=== PATIENT | male | born 1955 | race Two or more races ===

== ENCOUNTER 2024-02-14 01:57 | Emergency (ER) | payer OTHER, SELFPAY ==
[2024-02-14 01:59] VITALS: BMI 29.5
[2024-02-14 02:19] VITALS: BP 184/103; PULSE 114; RESP 18; TEMP 36.6; O2SAT 98
[2024-02-14 02:44] VITALS: BP 125/83
[2024-02-14 02:54] LABS: Collection Type, Urine Clean Catch; Squamous Epithelial Cell,Urine 0 /hpf (0-5)
--- NOTE | 2024-02-14 02:59 | PC.NURSE ---
pt presented with a [facility] weathers cath in place. States it has not drained for the past 3 hrs. co sever pain to pelvic area. Old cath removed. New 16 fr cath inserted after cleaning tari area. Cath was inserted without difficulty. Pt immediatly drained opprox 600cc of pink cloudy urine. UA sent to lab. Leg bag placed. Pt had immeniate relief of pain.
[2024-02-14 03:27] LABS: Bacteria,Urine 1+; Bilirubin,Urine Negative (Negative); Blood,Urine 3+ (Negative); Clarity,Urine Turbid (Clear/Hazy); Glucose, Urine 4+ (Negative); Ketones,Urine Negative (Negative); Leukocyte Esterase,Urine Positive (Negative); Nitrite,Urine Negative (Negative); PH,Urine 5.5 (5.0-7.0); Protein,Urine 1+ (Neg - Trace); RBC,Urine 2212 /hpf (0-3); Specific Gravity,Urine 1.017 (1.001-1.035); Urobilinogen,Urine Negative mg/dL (0.0-1.0); WBC,Urine 253 /hpf (0-5)
[2024-02-14 03:28] LABS: Color,Urine Yellow (Lt Yel-Yel)
--- NOTE | 2024-02-14 03:33 | EDNOTE_ITS ---
ED Male Genitalurinary RME/HPI General Chief complaint: Urogenital-Male Stated complaint: AGUILERA NOT DRAINING; LOWER ABD PAIN Time Seen by Provider: 02/14/24 02:02 Arrival date/time: 02/14/24 01:57 RME / HPI RME / HPI Narrative: This section includes all my notes and documentations, including HPI, PE, and ED course. Alen Hugo MD HPI: 68-year-old male here to be evaluated with no urinary output since last night and worsening suprapubic pain. Indwelling catheter for the past several months. No fever or chills. No nausea or vomiting. No hematuria. No other complaints ROS: Gastrointestinal: negative except as documented in HPI. Genitourinary: negative except as documented in HPI. Musculoskeletal: negative except as documented in HPI. Skin: negative except as documented in HPI. Neurological: negative except as documented in HPI. Physical Exam: General: Alert and oriented. Appears very uncomfortable. Eyes: Conjunctivae and lids clear. Lungs: No respiratory distress. Abdomen: Soft with suprapubic tenderness. Normal bowel sounds. No distension. No rebound or guarding. Back: No CVA tenderness. . Skin: Warm and dry. Neuro: Alert and oriented X 3. Indwelling Aguilera catheter replaced, patient felt much better. UA showed leukocyte Estrace, RBC, WBC, and bacteria. At this point, diagnoses include urinary retention and UTI. Treatment here included Macrobid 100 mg. Based on my best medical judgment, made decision no further evaluation or treatment indicated at this time. Patient understands and agrees to the discharge instructions customized and printed, see below. Discharge instructions from Dr. Hugo: 1. Take Macrobid for UTI. 2. To flush the urinary tract, increase oral fluid and maintain clear urine. If dark or yellow, increase oral fluid. 3. Care of the Aguilera catheter as instructed in the attached handout. 4. See a private doctor on 02/17/2024 for for recheck. Ask to check the final urine culture results from today, to make sure Macrobid doesn't need to be changed due to resistance. 5. Seek immediate medical care with worsening, fever, or with any concerns. Alen Hugo MD Related Data Previous Rx's ?Medication ?Instructions ?Recorded aspirin 81 mg tablet,delayed 81 mg PO QDAY #30 tabs 08/27/23 release (Adult Low Dose Aspirin) carvedilol 3.125 mg tablet 3.125 mg PO BID #60 tabs 08/27/23 clopidogrel 75 mg tablet (Plavix) 75 mg PO QDAY #30 tabs 08/27/23 lisinopril 10 mg tablet 10 mg PO QDAY #30 tabs 08/27/23 metformin 1,000 mg tablet 1,000 mg PO BIDWMEAL 30 days #60 08/27/23 tabs tamsulosin 0.4 mg capsule 0.4 mg PO QDAY BPH 30 days #30 caps 11/30/23 insulin glargine 100 unit/mL (3 22 unit (0.22 mL) subcut QPM 02/04/24 mL) subcutaneous pen Diabetes Mellitus Type 2 insulin requiring #15 mL nitrofurantoin 100 mg PO BID 7 days #14 caps 02/14/24 monohydrate/macrocrystals 100 mg capsule (Macrobid) Allergies Allergy/AdvReac Type Severity Reaction Status Date / Time No Known Allergies Allergy Verified 02/14/24 02:01 Course Quality Measures none Orders Category Date Time Status Aguilera [Urinary Catheter] QS Care 02/14/24 03:14 Completed Aguilera to Leg Bag Routine Care 02/14/24 02:07 Ordered Glucose [Bedside Blood Glucose] NOW Care 02/14/24 03:32 Completed UA [Urinalysis] Stat Lab 02/14/24 02:45 Completed Nitrofurantoin Macro [Macrobid] Med 02/14/24 03:33 Discontinued 100 mg PO X1 ONE Vital Signs Vital signs: Vital Signs Temperature 97.8 F 02/14/24 02:19 Pulse Rate 114 H 02/14/24 02:19 Respiratory Rate 18 02/14/24 02:19 Blood Pressure 184/103 H 02/14/24 02:19 Pulse Oximetry (%) 98 02/14/24 02:19 Oxygen Delivery Method Room Air 02/14/24 02:19 Urogenital - Male Patient data External records reviewed:: [facility] previous records Clinical information provided by:: patient Social determinants that could affect healthcare access:: none Patient has the following chronic illnesses:: See charting How is presenting disease/condition affected by chronic disease/condition?: exacerbated by Evaluation data The following diagnostics were reviewed and interpreted by me:: lab results Lab and/or radiology exams considered but not ordered:: None Interpretation Summary: UTI Medications / Prescriptions Medications or Prescriptions considered but not ordered:: None Medication administrations:: Medication Administration History Discontinued Medications Nitrofurantoin Macrocrystals (Nitrofurantoin Macro 100 Mg Capsule) 100 mg PO X1 ONE Stop: 02/14/24 03:34 Last Admin: 02/14/24 03:41 Dose: 100 mg Documented By: RUSTY Baker Consultations Consultation(s) initiated? (list below): No Diagnosis Urogenital Male Differential Diagnosis: urinary tract infection and acute retention of urine Most likely diagnosis given after review of the tests above:: UTI Admission Indicated Admission indicated?: not indicated Explain why admission is indicated or not indicated:: No admission criteria Admission Request Was there a request for admission?: No Disposition Plan Disposition Plan: Discharge Discharge Attestation Discharge Attestation: The patient and all family members were given an opportunity to ask questions and understood the discharge instructions. Discharge instructions specifically effects, indications for sooner follow up or return to the emergency department, and the expected course of current diagnosis. Patient condition: Stable Discharge Plan Plan Patient Disposition: HOME (Self Care) Prescriptions/Referrals Prescriptions/Med Rec: New nitrofurantoin monohyd/m-cryst [Macrobid] 100 mg capsule 100 mg PO BID 7 Days Qty: 14 0RF Rx Instructions: must administer with a meal/food No Action lisinopril 10 mg tablet 10 mg PO QDAY Qty: 30 3RF carvedilol 3.125 mg tablet 3.125 mg PO BID Qty: 60 3RF Rx Instructions: must administer with a meal/food aspirin [Adult Low Dose Aspirin] 81 mg tablet,delayed release (DR/EC) 81 mg PO QDAY Qty: 30 3RF clopidogrel [Plavix] 75 mg tablet 75 mg PO QDAY Qty: 30 3RF metformin 1,000 mg tablet 1,000 mg PO BIDWMEAL 30 Days Qty: 60 3RF insulin glargine 100 unit/mL (3 mL) insulin pen 22 unit subcut QPM MDD 15 units Qty: 15 3RF tamsulosin 0.4 mg capsule 0.4 mg PO QDAY 30 Days Qty: 30 2RF Referrals: No Primary/Family,Physician [Primary Care Provider] - In 1 week Problem List Clinical Impression: Acute urinary retention, UTI (urinary tract infection) Patient/Caregiver Discharge Instructions Discharge Activity: activity as tolerated Education Materials: ED Aguilera Catheter, Care, ED Urinary Retention, Male, ED Bladder Infection, Male (Adult) Additional Instructions: Discharge instructions from Dr. Hugo: 1. Take Macrobid for UTI. 2. To flush the urinary tract, increase oral fluid and maintain clear urine. If dark or yellow, increase oral fluid. 3. Care of the Aguilera catheter as instructed in the attached handout. 4. See a private doctor on 02/17/2024 for for recheck. Ask to check the final urine culture results from today, to make sure Macrobid doesn't need to be changed due to resistance. 5. Seek immediate medical care with worsening, fever, or with any concerns. Print Language: Japanese Stand Alone Forms: Marisela Award Info., Patient Portal Info Letter Vaccines Vaccines Given During Stay: MMR
[2024-02-14 03:36] VITALS: BP 147/79; PULSE 101; RESP 16; TEMP 36.6; O2SAT 99
[2024-02-14] MEDS: NITROFURANTOIN MACRO 100 MG CAPSULE PO (03:41)
== END 2024-02-14 03:46 | disposition home or self-care (01) ==
PROVIDERS: Emergency Provider Emergency Medicine
DX: N39.0 Urinary tract infection, site not specified (principal)
CPT/HCPCS: 51702; 81001; 99283; A9270

== ENCOUNTER 2024-02-22 08:59 | Outpatient (AMB) | payer OTHER, SELFPAY ==
[2024-02-22 09:04] VITALS: BP 125/76; PULSE 69; RESP 17; TEMP 36.7; O2SAT 97; BMI 28.0
--- NOTE | 2024-02-22 09:04 | ACNOTE_ITS ---
Vital Signs 02/22/24 09:04 Height 1.75 m Height Method Stated Weight 85.956 kg Weight Measurement Method Standing Scale BMI 28.0 BP 125/76 Blood Pressure Source Automatic Cuff Blood Pressure Location Left Upper Arm Position Sitting Respiration 17 Pulse 69 Pulse Source Monitor Temp 98.0 F Temp Source Oral Pulse Oximetry (%) 97 Oxygen Delivery Method Room Air Allergies/Meds Allergies & Medications Allergies No Known Allergies Allergy (Verified 02/22/24 09:05) Medication Reconciliation aspirin 81 mg tablet,delayed release (Adult Low Dose Aspirin) 81 mg PO QDAY #30 tabs 02/22/24 [Rx] carvedilol 3.125 mg tablet 3.125 mg PO BID #60 tabs 02/22/24 [Rx] clopidogrel 75 mg tablet (Plavix) 75 mg PO QDAY #30 tabs 02/22/24 [Rx] insulin glargine 100 unit/mL (3 mL) subcutaneous pen 22 unit (0.22 mL) subcut QPM Diabetes Mellitus Type 2 insulin requiring #15 mL 02/22/24 [Rx] lisinopril 10 mg tablet 10 mg PO QDAY #30 tabs 02/22/24 [Rx] metformin 1,000 mg tablet 1,000 mg PO BIDWMEAL 30 days #60 tabs 02/22/24 [Rx] tamsulosin 0.4 mg capsule 0.4 mg PO QDAY BPH 30 days #30 caps 02/22/24 [Rx] MA Intake Visit Data Collection New Patient or Established: Established Patient (seen at [facility] within 3 years) Seen by Clinical Staff ONLY (RN/MA): No Reason for Visit:: F/U ED visit for UTI Pain Present Currently: No Pain scale:: 0 Pain Scale Used: Watson-Almbert/Numerical PCP or OBGYN visit in last 3 months: Yes Do You Feel Safe at Home: Yes Authorities Contacted: N/A Smoking Status Smoking Status: Never smoker Immunization / Flu Flu Vaccine in the Last 12 Months: No Flu Vaccine Exclusion Criteria: No Exclusion Criteria Past Medical History Past Medical History NEUROLOGIC: Negative Neurological Disorders or Seizures CARDIAC: Negative Cardiac Disorders, Congestive Heart Failure, Edema or Cellulitis RESPIRATORY: Negative Chronic Obstructive Pulmonary Disease (COPD) or Tuberculosis GASTROINTESTINAL: Negative Gastrointestinal Disorders or Hepatitis GENITOURINARY: Positive Genitourinary Disorders and Benign Prostatic Hyperplasia; Negative Renal Disease or Prostate Cancer MUSCULOSKELETAL: Positive Fractures ENT: Positive Cataracts ENDOCRINE: Positive Endocrine Disorders and Diabetes Mellitus Type 2; Negative Diabetes Mellitus Type 1 HEMATOLOGIC: Negative Blood Disorders OTHER HISTORY: Positive Hospitalization, Chicken Pox, Measles and Mumps; Negative Shingles, Falls, Blood Transfusions, Blood Transfusion Reaction, Anesthesia Reactions, Chemotherapy, Radiation Therapy, MRSA, Cancer or Prostate Cancer Family History FAMILY HISTORY: Positive Family Surgery; Negative Family Psychiatric Problems, Family Respiratory Disorders, Family Cardiac Disorders, Family Gastrointestinal Problems, Family Cancer or Family Anesthesia Reaction Surgical History SURGICAL: Negative Pacemaker Social History SMOKING STATUS: Smoking status: Never smoker ALCOHOL: Alcohol Intake: Current HOUSING: Housing: House LIVES WITH: Lives With: Family History of Present Illness HPI Narrative Mr. Mahamed Herrera is a 67-year-old Slovenian-speaking male with a past medical history of insulin-dependent diabetes mellitus type II, recurrent UTIs, and BPH with urinary retention with chronic weathers who presents to [facility] for follow up of an ED visit last week on 02/14/2024 for suprapubic pain. He is present with his son who interprets in Tongan and . In the ED he had a urinalysis completed which had shown 1+ protein, 4+ glucose, 3+ blood, positive leukocyte esterase, 2212 RBCs, 253 WBCs, 1+ bacterias. Patient was discharged with a 7-day course of nitrofurantoin 100 mg BID and instructed to follow up outpatient for culture results. There is no urine culture in the chart but a previous culture from 08/2022 showed E. coli sensitive to nitrofurantoin. Currently he is feeling much better and denies any suprapubic pain, dysuria, hematuria, fevers, chills, sweats, fatigue, or malaise. He is still finishing the antibiotics. Otherwise the son reports that patient had also been feeling unwell last week due to being unable to refill his insulin glargine 22 U daily. He states that there was delay with [facility], thus patient did not get his insulin for 1 week. Patient had 1 instance of fever which then self-resolved. Now that he has his insulin he is feeling better. Requests refills of all medications. Objective/Exam Narrative Physical exam: Physical Exam General: Awake and in no acute distress. Conversational and non-toxic appearing. HEENT: Normocephalic, atraumatic, mucous membranes moist. Heart: Regular rate and rhythm, no murmurs. Lungs: Clear to auscultation with no wheezing or crackles. Abdomen: Soft, nondistended, nontender, positive bowel sounds. ?No guarding or rebound tenderness. Neurologic: Alert and oriented x3, no gross neurological deficit, and patient able to move all 4 extremities. Extremities: No edema. Skin: No rash or ecchymoses. Assessment & Plan Diagnosis / Problem List (1) Diabetes mellitus type 2, insulin dependent: Status: Acute Assessment & Plan: Diagnosed around approx. 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 Has not seen home care scheduler in the past 11/04/2021 A1C >14% 07/18/2022 A1C 8.6% 07/15/2023 was 8.9% A1c on 11/13 was 10.9% Plan: Continue Metformin 1000mg PO BIDWM Continue wtih long acting Generic Glargine 22 SC QD Counseled on diabetic diet & continue checking blood glucose fasting morning levels and evening levels after dinner Will have patient get CMP and A1c prior to next 3 month f/u Next appt for [facility] 2023 to discuss lab results in person (2) Benign prostatic hyperplasia with incomplete bladder emptying: Status: Acute Assessment & Plan: Tolerating weathers catheter without complications Used to follow with urologist, Dr. Burleson for monthly folely catheter changes, but needs new provider 03/31/22 Prostate biopsy: Benign Prostate with inflammation, prostate volume 48.57cc 07/28/2022 TURBT: urothelial papilloma, chronic cystitis with eosinophils, negative for dysplasia or malignancy 11/13: changed weathers catheter in the ED Plan: Sent referral to Dr. Degroot, and if not accepting new patients, will refer to another urologist. Patient most robertson pending insurance authorization May need TURP procedure after 6 months s/p cardiac stents Last referral sent on 12/14/23 (3) CAD (coronary artery disease): Status: Acute Qualifiers: Coronary Disease-Associated Artery/Lesion type: [place] artery [place] vs. transplanted heart: cab[place] heart Associated angina: without angina Qualified Code(s): I25.10 - Atherosclerotic heart disease of [place] coronary artery without angina pectoris Assessment & Plan: 07/18/2022 Lipid panel: Total Cholesterol 228, Triglycerides 157, HDL 35, & LDL 164 ASCVD algorithm 24% risk of cardiovascular event in the next 10 years and high- intensity statin is recommended Pt follows with Dr. Stewart, fitting room attendant in [place], and was reportedly started on Asa, Plavix, and Atorvastatin after undergoing PCI where 2 stents were placed. Per cardiology, has cardiac clearance, but recommends to have TURP procedure after 6 months, where he can momentarily get of the Plavix and Aspirin for procedure. Plan: Continue with Atorvastatin 40mg HS, Asa 81mg QD, and Plavix 75mg QD Will have patient get a Lipid panel prior to next inperson clinic visit (4) Hyperlipidemia: Status: Acute Qualifiers: Hyperlipidemia type: unspecified Qualified Code(s): E78.5 - Hyperlipidemia, unspecified Assessment & Plan: 07/18/2022 Lipid panel: Total Cholesterol 228, Triglycerides 157, HDL 35, & LDL 164 ASCVD algorithm 24% risk of cardiovascular event in the next 10 years and high- intensity statin is recommended 11/13, Lipid panel significantly better, last LDL was 59. Almost at goal LDL target of under 55. Plan: Continue with Atorvastatin 40mg HS, Asa 81mg QD, and Plavix 75mg QD Will have patient get labs prior to next inperson clinic visit (5) Hypertension: Status: Acute Qualifiers: Hypertension type: primary hypertension Qualified Code(s): I10 - Essential (primary) hypertension Assessment & Plan: Pt's BP is well controlled and stable Plan: Continue with Carvedilol 3.125mg BID and Lisinopril 10mg QD Encouraged to maintain a healthy diet, less than 2g of sodium/day Orders: Orders Ambulatory Hemoglobin A1C Today E11.9 - Type 2 diabetes mellitus without complications, I10 - Essential (primary) hypertension, Z79.4 - intermediate card tender (current) use of insulin Basic Metabolic Panel Today E11.9 - Type 2 diabetes mellitus without complications, I10 - Essential (primary) hypertension, Z79.4 - intermediate card tender (current) use of insulin Additional Assessment Patient's care and plan discussed with my attending physician Dr. Nichelle Lagunas, PGY-2 Advanced Care Planning Advance care planning discussed with:: patient Office Procedures [facility] Level of Care Nursing/Assessment Patient Status: Established Patient Nursing Assessment/Reassessment: Medication Reconciliation, Update PMH in EMR and Vital Signs Coordination of Care: Complex Care and Chronic Disease 1-5, Education Complex Pt/Fam, Results/Orders obtained and Staff clarify orders Established Patient Charge Established Patient Point Assignment: 90 Established Patient Point Charge: EP Level 3 (80-115)
== END 2024-02-22 10:00 | disposition home or self-care (01) ==
LOC: HODAHC 08:59
PROVIDERS: PCP Student in an Organized Health Care Education/Training Program; Referring Provider Student in an Organized Health Care Education/Training Program; Supervising Provider Internal Medicine; Visit Provider Student in an Organized Health Care Education/Training Program
DX: E11.42 Type 2 diabetes mellitus with diabetic polyneuropathy (principal); Z79.4 Long term (current) use of insulin; Z79.84 Long term (current) use of oral hypoglycemic drugs; N40.1 Benign prostatic hyperplasia with lower urinary tract symptoms; R39.14 Feeling of incomplete bladder emptying; I25.10 Atherosclerotic heart disease of native coronary artery without angina pectoris; E78.5 Hyperlipidemia, unspecified; I10 Essential (primary) hypertension
CPT/HCPCS: 99213; G0463

== ENCOUNTER 2024-04-18 13:33 | Outpatient (AMB) | payer OTHER, SELFPAY ==
--- NOTE | 2024-04-18 13:50 | PD.RESCLINIC ---
Vital Signs 04/18/24 13:51 Height 1.75 m Height Method Stated Weight 87.997 kg Weight Measurement Method Standing Scale BMI 28.7 BP 116/75 Blood Pressure Source Automatic Cuff Blood Pressure Location Left Upper Arm Position Sitting Respiration 18 Pulse 83 Pulse Source Monitor Temp 97.3 F Temp Source Oral Pulse Oximetry (%) 98 Oxygen Delivery Method Room Air Allergies/Meds Allergies & Medications Allergies No Known Allergies Allergy (Verified 04/18/24 13:51) Medication Reconciliation aspirin 81 mg tablet,delayed release (Adult Low Dose Aspirin) 81 mg PO QDAY 3 months #90 tabs 04/18/24 [Rx] carvedilol 3.125 mg tablet 3.125 mg PO BID #180 tabs 04/18/24 [Rx] clopidogrel 75 mg tablet (Plavix) 75 mg PO QDAY 3 months #90 tabs 04/18/24 [Rx] insulin glargine 100 unit/mL (3 mL) subcutaneous pen 22 unit (0.22 mL) subcut QPM Diabetes Mellitus Type 2 insulin requiring #15 mL 04/18/24 [Rx] lisinopril 10 mg tablet 10 mg PO QDAY 3 months #90 tabs 04/18/24 [Rx] metformin 1,000 mg tablet 1,000 mg PO BIDWMEAL 3 months #180 tabs 04/18/24 [Rx] pen needle, diabetic, safety 32 gauge x 5/32 #100 ea 04/18/24 [Rx] tamsulosin 0.4 mg capsule 0.4 mg PO QDAY BPH 90 days #90 caps 04/18/24 [Rx] MA Intake Visit Data Collection New Patient or Established: Established Patient (seen at [facility] within 3 years) Seen by Clinical Staff ONLY (RN/MA): No Pain Present Currently: No Pain scale:: 0 Pain Scale Used: Watson-Lambert/Numerical Cat Tender Required: No PCP or OBGYN visit in last 3 months: Yes Do You Feel Safe at Home: Yes Authorities Contacted: N/A Smoking Status Smoking Status: Never smoker Immunization / Flu Flu Vaccine in the Last 12 Months: No Flu Vaccine Exclusion Criteria: No Exclusion Criteria Past Medical History Past Medical History NEUROLOGIC: Negative Neurological Disorders or Seizures CARDIAC: Negative Cardiac Disorders, Congestive Heart Failure, Edema or Cellulitis RESPIRATORY: Negative Chronic Obstructive Pulmonary Disease (COPD) or Tuberculosis GASTROINTESTINAL: Negative Gastrointestinal Disorders or Hepatitis GENITOURINARY: Positive Genitourinary Disorders and Benign Prostatic Hyperplasia; Negative Renal Disease or Prostate Cancer MUSCULOSKELETAL: Positive Fractures ENT: Positive Cataracts ENDOCRINE: Positive Endocrine Disorders and Diabetes Mellitus Type 2; Negative Diabetes Mellitus Type 1 HEMATOLOGIC: Negative Blood Disorders OTHER HISTORY: Positive Hospitalization, Chicken Pox, Measles and Mumps; Negative Shingles, Falls, Blood Transfusions, Blood Transfusion Reaction, Anesthesia Reactions, Chemotherapy, Radiation Therapy, MRSA, Cancer or Prostate Cancer Family History FAMILY HISTORY: Positive Family Surgery; Negative Family Psychiatric Problems, Family Respiratory Disorders, Family Cardiac Disorders, Family Gastrointestinal Problems, Family Cancer or Family Anesthesia Reaction Surgical History SURGICAL: Negative Pacemaker Social History SMOKING STATUS: Smoking status: Never smoker ALCOHOL: Alcohol Intake: Current HOUSING: Housing: House LIVES WITH: Lives With: Family Patient Portal Questionaires PHQ-9 PHQ-2 Over the last 2 weeks, how often have you been bothered by any of the following problems? 1. Little interest or pleasure in doing things: not at all PHQ-9 8. Moving or speaking so slowly that other people could have noticed? - Or the opposite - being so fidgety or restless that you have been moving around a lot more than usual: not at all Source: Developed by Drs. Vinnie Livingston, Yuni Nix, Erick Gray and colleagues, with an educational mare from [employer]. Social History Living Situation History Housing: House Tobacco History Smoking Status: Never smoker Alcohol History Alcohol Intake: Current Domestic Abuse History Do You Feel Safe at Home: Yes Review of Systems Report any current symptoms Only answer those that you have currently: Past Medical History Past Medical History Have you ever been diagnosed with any of the following: Neurological Problems Seizures: No Cardiology Problems Congestive Heart Failure: No Edema: No Cellulitis: No Respiratory Problems Chronic Obstructive Pulmonary Disease (COPD): No Tuberculosis: No Stomache/Intestinal Problems Hepatitis: No Genital/Urinary Problems Renal Disease: No Prostate Cancer: No Benign Prostatic Hyperplasia: Yes Musculoskeletal Problems Fractures: Yes Head,Eye,Nose,Throat Problems Cataracts: Yes Endocrine Problems Diabetes Mellitus Type 1: No Diabetes Mellitus Type 2: Yes Other Problems Hospitalization: Yes Shingles: No Falls: No Blood Transfusions: No Blood Transfusion Reaction: No Anesthesia Reactions: No Chemotherapy: No Radiation Therapy: No MRSA: No Chicken Pox: Yes Measles: Yes Mumps: Yes Cancer: No Surgical History Pacemaker: No History of Present Illness [facility] Urology referral - Zane (send referral) Shanks denied him Mr. Mahamed Herrera is a 68-year-old Tajik-speaking male with a past medical history of insulin-dependent diabetes mellitus type II, recurrent UTIs, and BPH with urinary retention with chronic weathers who presented to [facility] for three month follow up to review labs. Unfortunately, patient forgot to product picker lab slip, and will have patient complete labs for next visit. Patient requested a refill of all his medications for 3 months which was sent. Patient states his BS has been between 70-120 fasting. Encouraged patient to decrease insulin administration of 22u to 20u when BS is closer to 70 to avoid hypogylcemic state and/or to drink juice. Patient was also contacted by Dr. Degroot's office for an appointment for his BPH. Patient is requested to have his PCP send a referral to urology office. Otherwise, patient denies any complaints at this time. Patient's BP today is WNL. Patient was accompanied by his nephew, Ceasar who helped with translation. Review of Systems Review of Systems Systems Reviewed: All systems reviewed, normal except as documented Objective/Exam Narrative Physical exam: GEN: Well developed, well nourished man in NAD HEENT: NCAT, anicteric conjunctivae CV: RRR, normal S1 and S2, no M/R/G Lungs: CTAB ABD: BS+, non-tender, non-distended Skin: No rashes, lesions, or erythema. Ext: No edema, sensation intact in bilateral lower extremities with 2+ pedal pulses Neuro: Alert and oriented x3 Assessment & Plan Diagnosis / Problem List (1) Diabetes mellitus type 2, insulin dependent: Status: Acute Assessment & Plan: Diagnosed around approx. Complicated by peripheral neuropathy Follows french binding folder yearly Has not seen kardex clerk in the past 11/04/2021 A1C >14% 07/18/2022 A1C 8.6% 07/15/2023 was 8.9% A1c on 11/13 was 10.9% Plan: Continue Metformin 1000mg PO BIDWM Continue wtih long acting Generic Glargine 22 SC QD IF BG does drop to 70 and below, can decrease insulin administration from 22U to 20U and/or drink juice Counseled on diabetic diet & continue checking blood glucose fasting morning levels and evening levels after dinner Will have patient get CMP and A1c prior to next 3 month f/u Next appt for May 23, 2024 to discuss lab results in person (2) CAD (coronary artery disease): Status: Acute Qualifiers: Associated angina: without angina Coronary Disease-Associated Artery/Lesion type: [place] artery [place] vs. transplanted heart: [place] heart Qualified Code(s): I25.10 - Atherosclerotic heart disease of [place] coronary artery without angina pectoris Assessment & Plan: 07/18/2022 Lipid panel: Total Cholesterol 228, Triglycerides 157, HDL 35, & LDL 164 ASCVD algorithm 24% risk of cardiovascular event in the next 10 years and high-intensity statin is recommended Pt follows with Dr. Stewart, storm chaser in [place], and was reportedly started on Asa, Plavix, and Atorvastatin after undergoing PCI where 2 stents were placed. Per cardiology, has cardiac clearance, but recommends to have TURP procedure after 6 months, where he can momentarily get of the Plavix and Aspirin for procedure. Patient also will have a stress test in a couple months with his storm chaser. Plan: Continue with Atorvastatin 40mg HS, Asa 81mg QD, and Plavix 75mg QD Will have patient get a Lipid panel prior to next inperson clinic visit (3) Benign prostatic hyperplasia with incomplete bladder emptying: Status: Acute Assessment & Plan: Tolerating weathers catheter without complications Used to follow with urologist, Dr. Burleson for monthly folely catheter changes, but needs new provider 03/31/22 Prostate biopsy: Benign Prostate with inflammation, prostate volume 48.57cc 07/28/2022 TURBT: urothelial papilloma, chronic cystitis with eosinophils, negative for dysplasia or malignancy 11/13: changed weathers catheter in the ED Dr. Degroot's office requested official referral, will send on 04/18/24 Plan: Sent referral to Dr. Degroot Patient most robertson pending insurance authorization May need TURP procedure after 6 months s/p cardiac stents Will send another referral 04/18/24 (4) Hyperlipidemia: Status: Acute Qualifiers: Hyperlipidemia type: unspecified Qualified Code(s): E78.5 - Hyperlipidemia, unspecified Assessment & Plan: 07/18/2022 Lipid panel: Total Cholesterol 228, Triglycerides 157, HDL 35, & LDL 164 ASCVD algorithm 24% risk of cardiovascular event in the next 10 years and high-intensity statin is recommended 11/13, Lipid panel significantly better, last LDL was 59. Almost at goal LDL target of under 55. 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 Edgar. Lorri Lagunas, PGY-2 Internal Medicine Attending Note: Case discussed with and agree with note and management plan of Resident Physician as per Resident's Note above. Issues of concern for present visit are as follows: Follow-up 3-month visit. Patient did not get labs done prior to the appointment, he will complete prior to his next visit. Diabetes self-care reviewed including diet, exercise, footcare, eye care. Home glucose readings have been in acceptable range fasting. May need to titrate insulin down as he has had borderline hypoglycemia. Patient was able to see urology locally for his ongoing issues including BPH. Referral to be sent to the office. Blood pressure under good control. We will review labs when available. Further detail of ongoing issues as noted. Anoop Edgar MD Advanced Care Planning Advance care planning discussed with:: patient Physician Billing Established Patient Established Patient: E/M Level 3-CPT [address] [facility] Level of Care Nursing/Assessment Patient Status: Established Patient Nursing Assessment/Reassessment: Medication Reconciliation, Update PMH in EMR and Vital Signs Coordination of Care: Complex Care and Chronic Disease 1-5, Consent,records obtained, informed consent, Education Simp Pt/Fam and Staff clarify orders Established Patient Charge Established Patient Point Assignment: 85 Established Patient Point Charge: Level 3 (80-115)
[2024-04-18 13:51] VITALS: BP 116/75; PULSE 83; RESP 18; TEMP 36.3; O2SAT 98; BMI 28.7
== END 2024-04-18 14:27 | disposition home or self-care (01) ==
LOC: HODAHC 13:33
PROVIDERS: PCP Student in an Organized Health Care Education/Training Program; Referring Provider Student in an Organized Health Care Education/Training Program; Supervising Provider Internal Medicine; Visit Provider Student in an Organized Health Care Education/Training Program
DX: E11.42 Type 2 diabetes mellitus with diabetic polyneuropathy (principal); Z79.4 Long term (current) use of insulin; Z79.84 Long term (current) use of oral hypoglycemic drugs; I25.10 Atherosclerotic heart disease of native coronary artery without angina pectoris; N40.1 Benign prostatic hyperplasia with lower urinary tract symptoms; R39.14 Feeling of incomplete bladder emptying; E78.5 Hyperlipidemia, unspecified; I10 Essential (primary) hypertension
CPT/HCPCS: 99213; G0463

== ENCOUNTER 2024-06-03 08:42 | Emergency (ER) | payer OTHER, SELFPAY ==
[2024-06-03 08:51] VITALS: BP 131/73; PULSE 72; RESP 18; TEMP 36.6; O2SAT 99; BMI 29.1
--- NOTE | 2024-06-03 09:02 | EDNOTE_ITS ---
ED General RME/HPI General Chief complaint: Urogenital-Male Stated complaint: GONSALVES CATH CHANGE Time Seen by Provider: 06/03/24 09:01 Arrival date/time: 06/03/24 08:42 CC: Leaking Gonsalves catheter HPI this Gonsalves catheter is been in for 3 months. The patient has had an indwelling Gonsalves catheter for the last year and a half last changed out was in February patient denies fever chills chest pain shortness of breath or difficulty breathing. Related Data Previous Rx's ?Medication ?Instructions ?Recorded aspirin 81 mg tablet,delayed 81 mg PO QDAY 3 months #9 0 tabs 04/18/24 release (Adult Low Dose Aspirin) carvedilol 3.125 mg tablet 3.125 mg PO BID #180 tabs 0 04/18/24 clopidogrel 75 mg tablet (Plavix) 75 mg PO QDAY 3 nain hs #90 tabs 04/18/24 insulin glargine 100 unit/mL (3 22 unit (0.22 mL) subc ut QPM 04/18/24 mL) subcutaneous pen Diabetes Mellitus Type 2 ins ulin requiring #15 mL lisinopril 10 mg tablet 10 mg PO QDAY 3 months #90 t abs 04/18/24 metformin 1,000 mg tablet 1,000 mg PO BIDWMEAL 3 month s #180 04/18/24 tabs pen needle, diabetic, safety 32 #100 ea 04/18/24 gauge x 5/32 tamsulosin 0.4 mg capsule 0.4 mg PO QDAY BPH 90 days # 90 caps 04/18/24 Allergies Allergy/AdvReac Type Severity Reaction Status Date / Time No Known Allergies Allergy Verified 04/18/24 13:51 Review of Systems Review of Systems Narrative Review of Systems: GEN: No fever, no chills, no weight loss EYES: No discharge, no visual changes, no pain HEENT: No ear pain, no congestion, no sore throat PULM: No shortness of breath, no cough, no congestion CV: No chest pain, no dyspnea on exertion, no palpitations GI: No nausea, no vomiting, no diarrhea, no pain, no constipation : No frequency, no urgency, no dysuria MUSC/SKEL: No joint pain, no back pain SKIN: No rash PSYCH: No hallucinations, no depression HEME/LYMPH: No easy bleeding or bruising tendencies NEURO: No weakness, no headache Past Medical History Past Medical History NEUROLOGIC: Negative Neurological Disorders or Seizures CARDIAC: Negative Cardiac Disorders, Congestive Heart Failure, Edema or Cellulitis RESPIRATORY: Negative Chronic Obstructive Pulmonary Disease (COPD) or Tuberculosis GASTROINTESTINAL: Negative Gastrointestinal Disorders or Hepatitis GENITOURINARY: Positive Genitourinary Disorders and Benign Prostatic Hyperplasia; Negative Renal Disease or Prostate Cancer MUSCULOSKELETAL: Positive Musculoskeletal Disorders and Fractures ENT: Positive Cataracts ENDOCRINE: Positive Endocrine Disorders and Diabetes Mellitus Type 2; Negative Diabetes Mellitus Type 1 HEMATOLOGIC: Negative Blood Disorders OTHER HISTORY: Positive Hospitalization, Chicken Pox, Measles and Mumps; Negative Autoimmune Disease, Shingles, Falls, Blood Transfusions, Blood Transfusion Reaction, Anesthesia Reactions, Chemotherapy, Radiation Therapy, MRSA, Cancer or Prostate Cancer Family History FAMILY HISTORY: Positive Family Surgery; Negative Family Psychiatric Problems, Family Respiratory Disorders, Family Cardiac Disorders, Family Gastrointestinal Problems, Family Cancer or Family Anesthesia Reaction Surgical History SURGICAL: Negative Pacemaker Social History SMOKING STATUS: Never smoker ED Exam Narrative Physical exam: [General: Obese not in cot no acute distress Head normocephalic HEENT: Within acceptable limits Neck is supple nontender Chest equal chest rise nontender to palpation Respiratory: Clear to auscultation no wheezes crackles or rubs CV: Rate rhythm is regular no murmurs rubs or clicks Abdomen is soft nontender no masses positive bowel sounds all 4 quadrants : Gonsalves catheter emerging from the tip of the penis, meatus no surrounding erythema edema blood or exudate. Leaking clear yellow urine. Back: No CVA tenderness no spinous process tenderness from cervical spine thoracic and lumbar spine Skin: Intact no petechiae rash induration ulceration or crepitus Extremities: Moving all extremity against resistance cap refill less than 2 seconds neurosensory intact Neuro: Awake alert oriented x3 Glascow coma 15 no focal deficits] Course Course Course Narrative: Gonsalves catheter changed without complication patient tolerated procedure well. Quality Measures none Orders Category Date Time Status Miscellaneous Nursing Order NOW Care 06/03/24 09:01 Active Urinalysis, C/S if Indicated Stat Lab 06/03/24 09:01 Stop Req Vital Signs Vital signs: Vital Signs Temperature 97.8 F 06/03/24 08:51 Pulse Rate 72 06/03/24 08:51 Respiratory Rate 18 06/03/24 08:51 Blood Pressure 131/73 H 06/03/24 08:51 Pulse Oximetry (%) 99 06/03/24 08:51 Oxygen Delivery Method Room Air 06/03/24 08:51 [facility] Patient data External records reviewed:: [facility] previous records Clinical information provided by:: patient Social determinants that could affect healthcare access:: none Patient has the following chronic illnesses:: Indwelling Gonsalves catheter How is presenting disease/condition affected by chronic disease/condition?: exacerbated by Evaluation data The following diagnostics were reviewed and interpreted by me:: lab results Lab and/or radiology exams considered but not ordered:: None Interpretation Summary: Gonsalves catheter change Medications Medications considered but not ordered:: None Medication administrations:: None Consultations Consultation(s) initiated? (list below): No Diagnosis Differential Diagnosis ED Complaint MDM: Gonsalves catheter change Gonsalves catheter failure Gonsalves catheter obstruction Most likely diagnosis given after review of the tests above:: Gonsalves catheter change Admission Indicated Admission indicated?: not indicated Explain why admission is indicated or not indicated:: Stable for outpatient follow-up Admission Request Was there a request for admission?: No Disposition Plan Disposition Plan: Discharge Discharge Attestation Discharge Attestation: The patient and all family members were given an opportunity to ask questions and understood the discharge instructions. Discharge instructions specifically effects, indications for sooner follow up or return to the emergency department, and the expected course of current diagnosis. Patient condition: Stable Medical Decision Making Differential Diagnosis Differential Diagnosis: Gonsalves catheter change Gonsalves catheter failure Gonsalves catheter obstruction Discharge Plan Plan Patient Disposition: HOME (Self Care) Patient condition on transfer: Stable Prescriptions/Referrals Prescriptions/Med Rec: No Action (DME) pen needle, diabetic, safety 32 gauge x 5/32 needle See Rx Instructions .Route Qty: 100 0RF Rx Instructions: As directed carvedilol 3.125 mg tablet 3.125 mg PO BID Qty: 180 2RF Rx Instructions: must administer with a meal/food insulin glargine 100 unit/mL (3 mL) insulin pen 22 unit subcut QPM MDD 15 units Qty: 15 3RF tamsulosin 0.4 mg capsule 0.4 mg PO QDAY 90 Days Qty: 90 2RF aspirin [Adult Low Dose Aspirin] 81 mg tablet,delayed release (DR/EC) 81 mg PO QDAY 90 Days Qty: 90 3RF clopidogrel [Plavix] 75 mg tablet 75 mg PO QDAY 90 Days Qty: 90 3RF lisinopril 10 mg tablet 10 mg PO QDAY 90 Days Qty: 90 3RF metformin 1,000 mg tablet 1,000 mg PO BIDWMEAL 90 Days Qty: 180 3RF Referrals: No Primary/Family,Physician [Primary Care Provider] - In 1 week Problem List Clinical Impression: Urinary catheter (Gonsalves) change required Patient/Caregiver Discharge Instructions Education Materials: Emptying and Cleaning Your ... Print Language: Taiwanese Stand Alone Forms: Marisela Award Info., Work/School Release, Patient Portal Info Letter PA/CRIME SPECIALIST Supervising Physician PA/CRIME SPECIALIST Supervising Physician: Melvin York ENP
== END 2024-06-03 09:49 | disposition home or self-care (01) ==
PROVIDERS: Emergency Provider Emergency Medicine
DX: T83.031A Leakage of indwelling urethral catheter, initial encounter (principal); Y84.6 Urinary catheterization as the cause of abnormal reaction of the patient, or of later complication, without mention of misadventure at the time of the procedure
CPT/HCPCS: 51702; 81001; 99283

== ENCOUNTER 2024-08-05 08:35 | Emergency (ER) | payer OTHER, SELFPAY ==
[2024-08-05 08:42] VITALS: BP 156/91; PULSE 69; RESP 18; TEMP 36.4; O2SAT 98; BMI 28.3
--- NOTE | 2024-08-05 09:05 | EDNOTE_ITS ---
<Statement entered by Candi Chaudhari MD - 08/16/24 06:29> As co-signing physician, I was present and available for consult prn. I concur with the plan and care as documented by the midlevel provider. ED Male Genitalurinary RME/HPI General Chief complaint: Urogenital-Male Stated complaint: WANTS F/C CHANGED Time Seen by Provider: 08/05/24 08:38 Arrival date/time: 08/05/24 08:35 68-year-old male presents to the Emergency Department today requesting to have his Aguilera catheter placed patient's had a catheter in place for months patient is awaiting follow-up with specialist Limitations: no limitations Related Data Previous Rx's ?Medication ?Instructions ?Recorded aspirin 81 mg tablet,delayed 81 mg PO QDAY 3 months #9 0 tabs 04/18/24 release (Adult Low Dose Aspirin) carvedilol 3.125 mg tablet 3.125 mg PO BID #180 tabs 0 04/18/24 clopidogrel 75 mg tablet (Plavix) 75 mg PO QDAY 3 nain hs #90 tabs 04/18/24 insulin glargine 100 unit/mL (3 22 unit (0.22 mL) subc ut QPM 04/18/24 mL) subcutaneous pen Diabetes Mellitus Type 2 ins ulin requiring #15 mL lisinopril 10 mg tablet 10 mg PO QDAY 3 months #90 t abs 04/18/24 metformin 1,000 mg tablet 1,000 mg PO BIDWMEAL 3 month s #180 04/18/24 tabs pen needle, diabetic, safety 32 #100 ea 04/18/24 gauge x 5/32 tamsulosin 0.4 mg capsule 0.4 mg PO QDAY BPH 90 days # 90 caps 04/18/24 Allergies Allergy/AdvReac Type Severity Reaction Status Date / Time No Known Allergies Allergy Verified 08/05/24 08:36 Review of Systems Review of Systems Systems Reviewed: All systems reviewed, normal except as documented Constitutional Constitutional: Reports system reviewed and no additional complaints, except as documented, Denies fever(s) and Denies headache(s) Eyes Eyes: Reports system reviewed and no additional complaints, except as documented and Denies blurry vision ENT Ears, Nose, Mouth, and Throat: Reports system reviewed and no additional co mplaints, except as documented, Denies headache(s), Denies nasal congestion and Denies nasal discharge Cardiovascular Cardiovascular: Reports system reviewed and no additional complaints, except as documented, Denies chest pain and Denies dyspnea Respiratory Respiratory: Reports system reviewed and no additional complaints, except as documented, Denies chest congestion, Denies cough and Denies dyspnea Gastrointestinal Gastrointestinal: Reports system reviewed and no additional complaints, except as documented and Denies abdominal pain Genitourinary Genitourinary: Reports system reviewed and no additional complaints, except as documented and Reports other (Aguilera catheter in place) Integumentary/Breasts Skin/Breast: Reports system reviewed and no additional complaints, except as documented and Denies rash Neurologic Neurologic: Reports system reviewed and no additional complaints, except as docu mented, Reports as per HPI and Denies headache(s) Past Medical History Past Medical History NEUROLOGIC: Negative Neurological Disorders or Seizures CARDIAC: Negative Cardiac Disorders, Congestive Heart Failure, Edema or Cellulitis RESPIRATORY: Negative Chronic Obstructive Pulmonary Disease (COPD) or Tuberculosis GASTROINTESTINAL: Negative Gastrointestinal Disorders or Hepatitis GENITOURINARY: Positive Genitourinary Disorders and Benign Prostatic Hyperplasia; Negative Renal Disease or Prostate Cancer MUSCULOSKELETAL: Positive Musculoskeletal Disorders and Fractures ENT: Positive Cataracts ENDOCRINE: Positive Endocrine Disorders and Diabetes Mellitus Type 2; Negative Diabetes Mellitus Type 1 HEMATOLOGIC: Negative Blood Disorders OTHER HISTORY: Positive Hospitalization, Chicken Pox, Measles and Mumps; Negative Autoimmune Disease, Shingles, Falls, Blood Transfusions, Blood Transfusion Reaction, Anesthesia Reactions, Chemotherapy, Radiation Therapy, MRSA, Cancer or Prostate Cancer Family History FAMILY HISTORY: Positive Family Surgery; Negative Family Psychiatric Problems, Family Respiratory Disorders, Family Cardiac Disorders, Family Gastrointestinal Problems, Family Cancer or Family Anesthesia Reaction Surgical History SURGICAL: Negative Pacemaker Social History SMOKING STATUS: Former smoker ED Exam General Limitations: Present no limitations General appearance: Present alert and in no apparent distress Head Head exam: Present atraumatic Eye Eye exam: Present normal appearance, PERRL and EOMI ENT ENT exam: Present normal exam, normal oropharynx and mucous membranes moist Neck Neck exam: Present normal inspection, full ROM and trachea midline Chest Chest inspection: Present normal inspection and symmetric chest wall rise Respiratory Respiratory exam: Present normal lung sounds bilaterally Cardiovascular Cardiovascular exam: Present regular rate, normal rhythm and normal heart sounds Abdominal Exam Abdominal exam: Present soft and normal bowel sounds; Absent distention, tenderness, guarding, rebound or rigidity Extremities Exam Extremities exam: Present normal inspection and full ROM Back Exam Back exam: Present normal inspection and full ROM Neurological Exam Neurological exam: Present alert, oriented X3, CN II-XII intact, normal gait and reflexes normal; Absent motor sensory deficit Psychiatric Psychiatric exam: Present normal affect and normal mood Skin Skin exam: Present warm, dry, intact and normal color; Absent rash Course Quality Measures none Orders Category Date Time Status Aguilera [Urinary Catheter, Remove] ONCE Care 08/05/24 08:38 Completed Aguilera [Urinary Catheter] NOW Care 08/05/24 08:38 Completed Aguilera to Leg Bag Routine Care 08/05/24 08:38 Ordered Vital Signs Vital signs: Vital Signs Temperature 97.6 F 08/05/24 08:42 Pulse Rate 69 08/05/24 08:42 Respiratory Rate 18 08/05/24 08:42 Blood Pressure 156/91 H 08/05/24 08:42 Pulse Oximetry (%) 98 08/05/24 08:42 Oxygen Delivery Method Room Air 08/05/24 08:42 02 sat 98% r/a wnl Urogenital - Male MDM Narrative MDM Narrative:: 68-year-old male presents to the Emergency Department today requesting to have his Aguilera catheter placed patient's had a catheter in place for months patient is awaiting follow-up with specialist On exam patient well-appearing patient does not appear ill or toxic in no acute distress Aguilera catheter is replaced without difficulty draining well Patient discharged home in no distress to follow-up with primary care doctor in the next 24 to 48 hours and for any worsening symptoms to return to the ER immediately Patient data External records reviewed:: [facility] previous records Clinical information provided by:: patient Social determinants that could affect healthcare access:: none Patient has the following chronic illnesses:: None How is presenting disease/condition affected by chronic disease/condition?: no chronic disease Evaluation data The following diagnostics were reviewed and interpreted by me:: other (specify) (N/A) Lab and/or radiology exams considered but not ordered:: N/A Interpretation Summary: N/A Medications / Prescriptions Medications or Prescriptions considered but not ordered:: No meds Medication administrations:: No meds Consultations Consultation(s) initiated? (list below): No Diagnosis Urogenital Male Differential Diagnosis: urinary tract infection and acute retention of urine Most likely diagnosis given after review of the tests above:: Aguilera catheter placement Admission Indicated Admission indicated?: not indicated Admission Request Was there a request for admission?: No Disposition Plan Disposition Plan: Discharge Discharge Attestation Discharge Attestation: The patient and all family members were given an opportunity to ask questions and understood the discharge instructions. Discharge instructions specifically effects, indications for sooner follow up or return to the emergency department, and the expected course of current diagnosis. Patient condition: Stable Discharge Plan Plan Patient Disposition: HOME (Self Care) Discharge Disposition comment: Stable Prescriptions/Referrals Prescriptions/Med Rec: No Action (DME) pen needle, diabetic, safety 32 gauge x 5/32 needle See Rx Instructions .Route Qty: 100 0RF Rx Instructions: As directed carvedilol 3.125 mg tablet 3.125 mg PO BID Qty: 180 2RF Rx Instructions: must administer with a meal/food insulin glargine 100 unit/mL (3 mL) insulin pen 22 unit subcut QPM MDD 15 units Qty: 15 3RF tamsulosin 0.4 mg capsule 0.4 mg PO QDAY 90 Days Qty: 90 2RF aspirin [Adult Low Dose Aspirin] 81 mg tablet,delayed release (DR/EC) 81 mg PO QDAY 90 Days Qty: 90 3RF clopidogrel [Plavix] 75 mg tablet 75 mg PO QDAY 90 Days Qty: 90 3RF lisinopril 10 mg tablet 10 mg PO QDAY 90 Days Qty: 90 3RF metformin 1,000 mg tablet 1,000 mg PO BIDWMEAL 90 Days Qty: 180 3RF Referrals: No Primary/Family,Physician [Primary Care Provider] - In 1 week Problem List Clinical Impression: Encounter for Aguilera catheter replacement Patient/Caregiver Discharge Instructions Additional Instructions: Please request that your PCP refer you to Dr. arias for worsening symptoms or concerns return immediately Print Language: Citizen Of The [place] Stand Alone Forms: Marisela Award Info., Patient Portal Info Letter PA/EVP MANAGING DIRECTOR Supervising Physician PA/TRIP Supervising Physician: Dr. chaudhari
== END 2024-08-05 09:59 | disposition home or self-care (01) ==
PROVIDERS: Emergency Provider Emergency Medicine
DX: Z46.6 Encounter for fitting and adjustment of urinary device (principal)
CPT/HCPCS: 51702; 99283

== ENCOUNTER 2024-09-16 08:39 | Emergency (ER) | payer OTHER, SELFPAY ==
[2024-09-16 09:08] VITALS: BP 119/74; PULSE 69; RESP 16; TEMP 36.9; O2SAT 99; BMI 29.2
--- NOTE | 2024-09-16 09:34 | EDNOTE_ITS ---
ED Male Genitalurinary RME/HPI General Chief complaint: Urogenital-Male Stated complaint: needs catheter replaced Time Seen by Provider: 09/16/24 09:10 Source: patient Arrival date/time: 09/16/24 08:39 68-year-old male with a history of type 2 diabetes, hypertension, BPH presents to the emergency room with a chief complaint of needing his catheter replaced. Patient states he has no urinary complaints but states his catheter leg bag has been leaking. Mode of arrival: ambulatory Limitations: no limitations Related Data Previous Rx's ?Medication ?Instructions ?Recorded aspirin 81 mg tablet,delayed 81 mg PO QDAY 3 months #9 0 tabs 04/18/24 release (Adult Low Dose Aspirin) carvedilol 3.125 mg tablet 3.125 mg PO BID #180 tabs 0 04/18/24 clopidogrel 75 mg tablet (Plavix) 75 mg PO QDAY 3 nain hs #90 tabs 04/18/24 insulin glargine 100 unit/mL (3 22 unit (0.22 mL) subc ut QPM 04/18/24 mL) subcutaneous pen Diabetes Mellitus Type 2 ins ulin requiring #15 mL lisinopril 10 mg tablet 10 mg PO QDAY 3 months #90 t abs 04/18/24 metformin 1,000 mg tablet 1,000 mg PO BIDWMEAL 3 month s #180 04/18/24 tabs pen needle, diabetic, safety 32 #100 ea 04/18/24 gauge x 5/32 tamsulosin 0.4 mg capsule 0.4 mg PO QDAY BPH 90 days # 90 caps 04/18/24 Allergies Allergy/AdvReac Type Severity Reaction Status Date / Time No Known Allergies Allergy Verified 09/16/24 08:42 Review of Systems Review of Systems Systems Reviewed: All systems reviewed, normal except as documented Constitutional Constitutional: Reports system reviewed and no additional complaints, except as documented, Denies fatigue, Denies fever(s), Denies headache(s) and Denies weakness Eyes Eyes: Reports system reviewed and no additional complaints, except as docum ented, Denies blurry vision and Denies change in vision ENT Ears, Nose, Mouth, and Throat: Reports system reviewed and no additional complaints, except as documented, Denies otalgia, Denies headache(s), Denies nasal congestion, Denies throat swelling and Denies vertigo Cardiovascular Cardiovascular: Reports system reviewed and no additional complaints, except as documented, Denies chest pain, Denies dyspnea and Denies dyspnea on exertion Respiratory Respiratory: Reports system reviewed and no additional complaints, except as documented, Denies chest congestion, Denies cough, Denies dyspnea, Denies dyspnea on exertion and Denies wheezing Gastrointestinal Gastrointestinal: Reports system reviewed and no additional complaints, except as documented, Denies abdominal pain, Denies cramping, Denies nausea and Denies vomiting Genitourinary Genitourinary: Reports system reviewed and no additional complaints, except as documented, Denies dysuria and Denies hematuria Musculoskeletal Musculoskeletal: Reports system reviewed and no additional complaints, except as documented and Denies back pain Integumentary/Breasts Skin/Breast: Reports system reviewed and no additional complaints, except as documented and Denies wounds Neurologic Neurologic: Reports system reviewed and no additional complaints, except as documented, Denies confusion, Denies headache(s), Denies lack of coordination, Denies vertigo and Denies weakness Psychiatric Psychiatric: Reports system reviewed and no additional complaints, except as documented, Denies anxiety, Denies confusion, Denies depression, Denies paranoia, Denies suicidal ideation and Denies tactile hallucinations Endocrine Endocrine: Reports system reviewed and no additional complaints, except as documented and Denies fatigue Hematologic/Lymphatic Hematologic/Lymphatic: Reports system reviewed and no additional complaints, except as documented and Denies lymphadenopathy Allergic/Immunologic Allergic/Immunologic: Reports system reviewed and no additional complaints, except as documented, Denies throat swelling, Denies urticaria and Denies wheezing Past Medical History Past Medical History NEUROLOGIC: Negative Neurological Disorders or Seizures CARDIAC: Negative Cardiac Disorders, Congestive Heart Failure, Edema or Cellulitis RESPIRATORY: Negative Chronic Obstructive Pulmonary Disease (COPD) or Tuberculo sis GASTROINTESTINAL: Negative Gastrointestinal Disorders or Hepatitis GENITOURINARY: Positive Genitourinary Disorders and Benign Prostatic Hyperplasia; Negative Renal Disease or Prostate Cancer MUSCULOSKELETAL: Positive Musculoskeletal Disorders and Fractures ENT: Positive Cataracts ENDOCRINE: Positive Endocrine Disorders and Diabetes Mellitus Type 2; Negative Diabetes Mellitus Type 1 HEMATOLOGIC: Negative Blood Disorders OTHER HISTORY: Positive Hospitalization, Chicken Pox, Measles and Mumps; Negative Autoimmune Disease, Shingles, Falls, Blood Transfusions, Blood Transfusion Reaction, Anesthesia Reactions, Chemotherapy, Radiation Therapy, MRSA, Cancer or Prostate Cancer Family History FAMILY HISTORY: Positive Family Surgery; Negative Family Psychiatric Problems, Family Respiratory Disorders, Family Cardiac Disorders, Family Gastrointestinal Problems, Family Cancer or Family Anesthesia Reaction Surgical History SURGICAL: Negative Pacemaker Social History SMOKING STATUS: Former smoker ED Exam General Limitations: Present no limitations General appearance: Present alert and in no apparent distress Head Head exam: Present atraumatic Eye Eye exam: Present normal appearance, PERRL and EOMI ENT ENT exam: Present normal exam, normal oropharynx and mucous membranes moist Neck Neck exam: Present normal inspection, full ROM and trachea midline Chest Chest inspection: Present normal inspection and symmetric chest wall rise Respiratory Respiratory exam: Present normal lung sounds bilaterally Cardiovascular Cardiovascular exam: Present regular rate, normal rhythm and normal heart sounds Abdominal Exam Abdominal exam: Present soft and normal bowel sounds Extremities Exam Extremities exam: Present normal inspection and full ROM Back Exam Back exam: Present normal inspection and full ROM Neurological Exam Neurological exam: Present alert, oriented X3 and CN II-XII intact Psychiatric Psychiatric exam: Present normal affect and normal mood Skin Skin exam: Present warm, dry, intact and normal color Course Quality Measures none Orders Category Date Time Status Aguilera [Urinary Catheter, Remove] ONCE Care 09/16/24 09:32 Active Aguilera [Urinary Catheter] QS Care 09/16/24 09:32 Active Aguilera to Leg Bag Routine Care 09/16/24 09:32 Ordered Vital Signs Vital signs: Vital Signs Temperature 98.4 F 09/16/24 09:08 Pulse Rate 69 09/16/24 09:08 Respiratory Rate 16 09/16/24 09:08 Blood Pressure 119/74 09/16/24 09:08 Pulse Oximetry (%) 99 09/16/24 09:08 Oxygen Delivery Method Room Air 09/16/24 09:08 Urogenital - Male MDM Narrative MDM Narrative:: 68-year-old male with a history of type 2 diabetes, hypertension, BPH presents to the emergency room with a chief complaint of needing his catheter replaced. Patient states he has no urinary complaints but states his catheter leg bag has been leaking. Patient is hemodynamically stable and in no apparent distress Physical examination shows a soft nontender abdomen. Patient states that with his catheter in place he is able to urinate with no complications. There is no hematuria or any dysuria. Patient states he was in the process of getting a urologist but due to his insurance he is having some problems. The catheter was replaced with no complications. Patient was discharged Patient was discharged and educated to follow-up with primary care provider in the next 24 to 48 hours and return to the emergency room for any evidence of worsening signs or symptoms Patient data External records reviewed:: [facility] previous records Clinical information provided by:: patient Social determinants that could affect healthcare access:: none Patient has the following chronic illnesses:: BPH How is presenting disease/condition affected by chronic disease/condition?: caused by Evaluation data The following diagnostics were reviewed and interpreted by me:: lab results and radiology exam(s) Lab and/or radiology exams considered but not ordered:: Lab results and radiology exams considered in order Interpretation Summary: N/A Medications / Prescriptions Medications or Prescriptions considered but not ordered:: No medication given Medication administrations:: No medication given Consultations Consultation(s) initiated? (list below): No Diagnosis Urogenital Male Differential Diagnosis: urinary tract infection, acute retention of urine and other (Catheter replacement) Most likely diagnosis given after review of the tests above:: Catheter replacement Admission Indicated Admission indicated?: not indicated Admission Request Was there a request for admission?: No Disposition Plan Disposition Plan: Discharge Discharge Attestation Discharge Attestation: The patient and all family members were given an opportunity to ask questions and understood the discharge instructions. Discharge instructions specifically effects, indications for sooner follow up or return to the emergency department, and the expected course of current diagnosis. Patient condition: Stable Discharge Plan Plan Patient Disposition: HOME (Self Care) Discharge Disposition comment: Stable Prescriptions/Referrals Prescriptions/Med Rec: No Action (DME) pen needle, diabetic, safety 32 gauge x 5/32 needle See Rx Instructions .Route Qty: 100 0RF Rx Instructions: As directed carvedilol 3.125 mg tablet 3.125 mg PO BID Qty: 180 2RF Rx Instructions: must administer with a meal/food insulin glargine 100 unit/mL (3 mL) insulin pen 22 unit subcut QPM MDD 15 units Qty: 15 3RF tamsulosin 0.4 mg capsule 0.4 mg PO QDAY 90 Days Qty: 90 2RF aspirin [Adult Low Dose Aspirin] 81 mg tablet,delayed release (DR/EC) 81 mg PO QDAY 90 Days Qty: 90 3RF clopidogrel [Plavix] 75 mg tablet 75 mg PO QDAY 90 Days Qty: 90 3RF lisinopril 10 mg tablet 10 mg PO QDAY 90 Days Qty: 90 3RF metformin 1,000 mg tablet 1,000 mg PO BIDWMEAL 90 Days Qty: 180 3RF Problem List Clinical Impression: Encounter for Aguilera catheter replacement Patient/Caregiver Discharge Instructions Additional Instructions: Please follow-up with your primary care provider in the next 24 to 48 hours For any evidence of worsening signs or symptoms return to the emergency room immediately Print Language: Vincent[place] Stand Alone Forms: Marisela Award Info., Patient Portal Info Letter PA/FINANCIAL HEALTH COUNSELOR Supervising Physician PA/FINANCIAL HEALTH COUNSELOR Supervising Physician: Dr. Jeronimo
[2024-09-16 10:39] VITALS: BP 138/76; PULSE 78; RESP 18; TEMP 36.4; O2SAT 100
== END 2024-09-16 10:40 | disposition home or self-care (01) ==
LOC: SERX 09:53
PROVIDERS: Emergency Provider Emergency Medicine
DX: Z46.6 Encounter for fitting and adjustment of urinary device (principal)
CPT/HCPCS: 51702; 99283; A4314

== ENCOUNTER 2024-11-16 06:08 | Emergency (ER) | payer OTHER, SELFPAY ==
[2024-11-16 06:30] VITALS: BP 144/82; PULSE 84; RESP 18; TEMP 36.4; O2SAT 98; BMI 29.5
--- NOTE | 2024-11-16 07:12 | EDNOTE_ITS ---
ED Male Genitalurinary RME/HPI General Chief complaint: Urogenital-Male Stated complaint: GONSALVES CATH NOT DRAINING Time Seen by Provider: 11/16/24 06:14 Arrival date/time: 11/16/24 06:08 68-year-old male who has a Gonsalves catheter in place intermittently for the last 3 years presents with concerns for the Gonsalves catheter being clogged since around midnight. Limitations: no limitations Related Data Previous Rx's ?Medication ?Instructions ?Recorded aspirin 81 mg tablet,delayed 81 mg PO QDAY 3 months #9 0 tabs 10/24/24 release (Adult Low Dose Aspirin) carvedilol 3.125 mg tablet 3.125 mg PO BID #180 tabs 0 10/24/24 clopidogrel 75 mg tablet (Plavix) 75 mg PO QDAY 3 nain hs #90 tabs 10/24/24 lisinopril 10 mg tablet 10 mg PO QDAY 3 months #90 t abs 10/24/24 metformin 1,000 mg tablet 1,000 mg PO BIDWMEAL 3 month s #180 10/24/24 tabs pen needle, diabetic, safety 32 #100 ea 10/24/24 gauge x 5/32 tamsulosin 0.4 mg capsule 0.4 mg PO QDAY BPH 90 days # 90 caps 10/24/24 insulin glargine 100 unit/mL (3 22 unit (0.22 mL) subc ut QPM 11/11/24 mL) subcutaneous pen Diabetes Mellitus Type 2 ins ulin requiring #15 mL Allergies Allergy/AdvReac Type Severity Reaction Status Date / Time No Known Allergies Allergy Verified 09/16/24 08:42 Review of Systems Review of Systems Systems Reviewed: All systems reviewed, normal except as documented Constitutional Constitutional: Reports system reviewed and no additional complaints, except as documented, Denies fever(s) and Denies headache(s) Eyes Eyes: Reports system reviewed and no additional complaints, except as documented and Denies blurry vision ENT Ears, Nose, Mouth, and Throat: Reports system reviewed and no additional complaints, except as documented, Denies headache(s), Denies nasal congestion and Denies nasal discharge Cardiovascular Cardiovascular: Reports system reviewed and no additional complaints, except as documented, Denies chest pain and Denies dyspnea Respiratory Respiratory: Reports system reviewed and no additional complaints, except as documented, Denies chest congestion, Denies cough and Denies dyspnea Gastrointestinal Gastrointestinal: Reports system reviewed and no additional complaints, except a s documented and Denies abdominal pain Integumentary/Breasts Skin/Breast: Reports system reviewed and no additional complaints, except as documented and Denies rash Neurologic Neurologic: Reports system reviewed and no additional complaints, except as documented, Reports as per HPI and Denies headache(s) Past Medical History Past Medical History NEUROLOGIC: Negative Neurological Disorders or Seizures CARDIAC: Negative Cardiac Disorders, Congestive Heart Failure, Edema or Cellulitis RESPIRATORY: Negative Chronic Obstructive Pulmonary Disease (COPD) or Tuberculosis GASTROINTESTINAL: Negative Gastrointestinal Disorders or Hepatitis GENITOURINARY: Positive Genitourinary Disorders and Benign Prostatic Hyperplasia; Negative Renal Disease or Prostate Cancer MUSCULOSKELETAL: Positive Musculoskeletal Disorders and Fractures ENT: Positive Cataracts ENDOCRINE: Positive Endocrine Disorders and Diabetes Mellitus Type 2; Negative Diabetes Mellitus Type 1 HEMATOLOGIC: Negative Blood Disorders OTHER HISTORY: Positive Hospitalization, Chicken Pox, Measles and Mumps; Negative Autoimmune Disease, Shingles, Falls, Blood Transfusions, Blood Transfusion Reaction, Anesthesia Reactions, Chemotherapy, Radiation Therapy, MRSA, Cancer or Prostate Cancer Family History FAMILY HISTORY: Positive Family Surgery; Negative Family Psychiatric Problems, Family Respiratory Disorders, Family Cardiac Disorders, Family Gastrointestinal Problems, Family Cancer or Family Anesthesia Reaction Surgical History SURGICAL: Negative Pacemaker Social History SMOKING STATUS: Never smoker ED Exam General Limitations: Present no limitations General appearance: Present alert and in no apparent distress Head Head exam: Present atraumatic Eye Eye exam: Present normal appearance, PERRL and EOMI ENT ENT exam: Present normal exam, normal oropharynx and mucous membranes moist Neck Neck exam: Present normal inspection, full ROM and trachea midline Chest Chest inspection: Present normal inspection and symmetric chest wall rise Respiratory Respiratory exam: Present normal lung sounds bilaterally Cardiovascular Cardiovascular exam: Present regular rate, normal rhythm and normal heart sounds Abdominal Exam Abdominal exam: Present soft and normal bowel sounds; Absent distention or tenderness exam: Present other (Gonsalves catheter in place) Extremities Exam Extremities exam: Present normal inspection and full ROM Back Exam Back exam: Present normal inspection and full ROM Neurological Exam Neurological exam: Present alert, oriented X3 and CN II-XII intact Psychiatric Psychiatric exam: Present normal affect and normal mood Skin Skin exam: Present warm, dry, intact and normal color Course Quality Measures none Orders Category Date Time Status Gonsalves [Urinary Catheter, Remove] NOW Care 11/16/24 06:40 Completed Gonsalves [Urinary Catheter] NOW Care 11/16/24 06:40 Active Gonsalves to Leg Bag Routine Care 11/16/24 06:40 Ordered Vital Signs Vital signs: Vital Signs Temperature 97.5 F 11/16/24 06:30 Pulse Rate 84 11/16/24 06:30 Respiratory Rate 18 11/16/24 06:30 Blood Pressure 144/82 H 11/16/24 06:30 Pulse Oximetry (%) 98 11/16/24 06:30 Oxygen Delivery Method Room Air 11/16/24 06:30 O2 saturation 98% room air within the limits Urogenital - Male MDM Narrative MDM Narrative:: 68-year-old male who has a Gonsalves catheter in place intermittently for the last 3 years presents with concerns for the Gonsalves catheter being clogged since around midnight. On exam patient does report pain Gonsalves catheter is replaced and is now draining well patient reports full relief of symptoms Patient discharged home in no distress to follow-up with primary care doctor in the next 24 to 48 hours and for any worsening symptoms to return to the ER immediately Patient data External records reviewed:: [facility] previous records Clinical information provided by:: patient Social determinants that could affect healthcare access:: none Patient has the following chronic illnesses:: None How is presenting disease/condition affected by chronic disease/condition?: no chronic disease Evaluation data The following diagnostics were reviewed and interpreted by me:: other (specify) Lab and/or radiology exams considered but not ordered:: Considered not indicated Interpretation Summary: N/A Medications / Prescriptions Medications or Prescriptions considered but not ordered:: Given Medication administrations:: Given Consultations Consultation(s) initiated? (list below): No Diagnosis Urogenital Male Differential Diagnosis: other (Gonsalves catheter problem, retention of urine) Most likely diagnosis given after review of the tests above:: Gonsalves catheter clogged Admission Indicated Admission indicated?: not indicated Admission Request Was there a request for admission?: No Disposition Plan Disposition Plan: Discharge Discharge Attestation Discharge Attestation: The patient and all family members were given an opportunity to ask questions and understood the discharge instructions. Discharge instructions specifically effects, indications for sooner follow up or return to the emergency department, and the expected course of current diagnosis. Patient condition: Stable Discharge Plan Plan Patient Disposition: HOME (Self Care) Discharge Disposition comment: Stable Prescriptions/Referrals Prescriptions/Med Rec: No Action aspirin [Adult Low Dose Aspirin] 81 mg tablet,delayed release (DR/EC) 81 mg PO QDAY 90 Days Qty: 90 3RF carvedilol 3.125 mg tablet 3.125 mg PO BID Qty: 180 2RF Rx Instructions: must administer with a meal/food clopidogrel [Plavix] 75 mg tablet 75 mg PO QDAY 90 Days Qty: 90 3RF lisinopril 10 mg tablet 10 mg PO QDAY 90 Days Qty: 90 3RF metformin 1,000 mg tablet 1,000 mg PO BIDWMEAL 90 Days Qty: 180 3RF tamsulosin 0.4 mg capsule 0.4 mg PO QDAY 90 Days Qty: 90 2RF (DME) pen needle, diabetic, safety 32 gauge x 5/32 needle See Rx Instructions .Route Qty: 100 0RF Rx Instructions: As directed insulin glargine 100 unit/mL (3 mL) insulin pen 22 unit subcut QPM MDD 15 units Qty: 15 3RF Problem List Clinical Impression: Malfunction of Gonsalves catheter Patient/Caregiver Discharge Instructions Additional Instructions: Please follow up with your primary care doctor in the next 24-48hrs for any worsening symptoms return here immediately Print Language: Citizen Of [place] Stand Alone Forms: Marisela Award Info., Patient Portal Info Letter PA/NARCOTICS AGENT Supervising Physician PA/NARCOTICS AGENT Supervising Physician: Dr. haddad
== END 2024-11-16 07:30 | disposition home or self-care (01) ==
LOC: SERX 07:54
PROVIDERS: Emergency Provider Emergency Medicine
DX: T83.091A Other mechanical complication of indwelling urethral catheter, initial encounter (principal); Y73.1 Therapeutic (nonsurgical) and rehabilitative gastroenterology and urology devices associated with adverse incidents; Y84.6 Urinary catheterization as the cause of abnormal reaction of the patient, or of later complication, without mention of misadventure at the time of the procedure
CPT/HCPCS: 51702; 99283; A4314

== ENCOUNTER 2025-03-10 13:15 | Outpatient (AMB) | payer OTHER, SELFPAY ==
[2025-03-10 13:41] VITALS: BP 160/88; PULSE 73; RESP 18; TEMP 36.2; O2SAT 96; BMI 29.0
--- NOTE | 2025-03-10 13:41 | ACNOTE_ITS ---
Vital Signs 03/10/25 13:41 Height 1.73 m Height Method Stated Weight 86.863 kg Weight Measurement Method Standing Scale BMI 29.0 BP 160/88 H Blood Pressure Source Automatic Cuff Blood Pressure Location Right Upper Arm Position Sitting Respiration 18 Pulse 73 Pulse Source Monitor Temp 97.1 F Temp Source Temporal Artery Scan Pulse Oximetry (%) 96 Oxygen Delivery Method Room Air Allergies/Meds Allergies & Medications Allergies No Known Allergies Allergy (Verified 03/10/25 13:42) Medication Reconciliation clopidogrel 75 mg tablet (Plavix) 75 mg PO QDAY 3 months #90 tabs 10/24/24 [Rx C onfirmed 03/10/25] aspirin 81 mg tablet,delayed release (Adult Low Dose Aspirin) 81 mg PO QDAY 3 months #90 tabs 03/10/25 [Rx] carvedilol 3.125 mg tablet 3.125 mg PO BID #180 tabs 03/10/25 [Rx] insulin glargine 100 unit/mL (3 mL) subcutaneous pen 22 unit (0.22 mL) subcut QPM Diabetes Mellitus Type 2 insulin requiring #15 mL 03/10/25 [Rx] lisinopril 10 mg tablet 10 mg PO QDAY 3 months #90 tabs 03/10/25 [Rx] metformin 1,000 mg tablet 1,000 mg PO BIDWMEAL 3 months #180 tabs 03/10/25 [Rx] pen needle, diabetic, safety 32 gauge x 5/32 #100 ea 03/10/25 [Rx] tamsulosin 0.4 mg capsule 0.4 mg PO QDAY BPH 90 days #90 caps 03/10/25 [Rx] MA Intake Visit Data Collection New Patient or Established: Established Patient (seen at [facility] within 3 years) Seen by Clinical Staff ONLY (RN/MA): No Pain Present Currently: No Pain scale:: 0 Pain Scale Used: Watson-Lambert/Numerical [employer] Required: No PCP or OBGYN visit in last 3 months: No Do You Feel Safe at Home: Yes Authorities Contacted: N/A Smoking Status Smoking Status: Never smoker Immunization / Flu Flu Vaccine in the Last 12 Months: No Flu Vaccine Exclusion Criteria: Refused by Patient Past Medical History Past Medical History NEUROLOGIC: Negative Neurological Disorders or Seizures CARDIAC: Negative Cardiac Disorders, Congestive Heart Failure, Edema or Cellulitis RESPIRATORY: Negative Chronic Obstructive Pulmonary Disease (COPD) or Tuberculosis GASTROINTESTINAL: Negative Gastrointestinal Disorders or Hepatitis GENITOURINARY: Positive Genitourinary Disorders and Benign Prostatic Hyperplasia; Negative Renal Disease or Prostate Cancer MUSCULOSKELETAL: Positive Fractures ENT: Positive Cataracts ENDOCRINE: Positive Endocrine Disorders and Diabetes Mellitus Type 2; Negative Diabetes Mellitus Type 1 HEMATOLOGIC: Negative Blood Disorders OTHER HISTORY: Positive Hospitalization, Chicken Pox, Measles and Mumps; Negative Shingles, Falls, Blood Transfusions, Blood Transfusion Reaction, Anesthesia Reactions, Chemotherapy, Radiation Therapy, MRSA, Cancer or Prostate Cancer Family History FAMILY HISTORY: Positive Family Surgery; Negative Family Psychiatric Problems, Family Respiratory Disorders, Family Cardiac Disorders, Family Gastrointestinal Problems, Family Cancer or Family Anesthesia Reaction Surgical History SURGICAL: Negative Pacemaker Social History SMOKING STATUS: Smoking status: Never smoker ALCOHOL: Alcohol Intake: Current HOUSING: Housing: House LIVES WITH: Lives With: Family Patient Portal Questionaires PHQ-9 PHQ-2 Over the last 2 weeks, how often have you been bothered by any of the following problems? 1. Little interest or pleasure in doing things: not at all PHQ-9 8. Moving or speaking so slowly that other people could have noticed? - Or the opposite - being so fidgety or restless that you have been moving around a lot more than usual: not at all Source: Developed by Drs. Vinnie Livingston, Yuni Nix, Erick Gray and colleagues, with an educational mare from [employer]. Social History Living Situation History Housing: House Tobacco History Smoking Status: Never smoker Alcohol History Alcohol Intake: Current Domestic Abuse History Do You Feel Safe at Home: Yes Review of Systems Report any current symptoms Only answer those that you have currently: Past Medical History Past Medical History Have you ever been diagnosed with any of the following: Neurological Problems Seizures: No Cardiology Problems Congestive Heart Failure: No Edema: No Cellulitis: No Respiratory Problems Chronic Obstructive Pulmonary Disease (COPD): No Tuberculosis: No Stomache/Intestinal Problems Hepatitis: No Genital/Urinary Problems Renal Disease: No Prostate Cancer: No Benign Prostatic Hyperplasia: Yes Musculoskeletal Problems Fractures: Yes Head,Eye,Nose,Throat Problems Cataracts: Yes Endocrine Problems Diabetes Mellitus Type 1: No Diabetes Mellitus Type 2: Yes Other Problems Hospitalization: Yes Shingles: No Falls: No Blood Transfusions: No Blood Transfusion Reaction: No Anesthesia Reactions: No Chemotherapy: No Radiation Therapy: No MRSA: No Chicken Pox: Yes Measles: Yes Mumps: Yes Cancer: No Surgical History Pacemaker: No History of Present Illness HPI Narrative Patient presents to clinic today for follow up. Requesting refill on medications for all medications. Patient checks sugar home, has been well controlled. No issues wuith urination. He has history of CAD which was placed over a year ago now. 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 No longer on plavix, taking only Asa. No major complaints, he denies any chest pain or SOB. Review of Systems Review of Systems Systems Reviewed: All systems reviewed, normal except as documented Objective/Exam Narrative Physical exam: General: Alert and oriented x3. No acute distress, cooperative HEENT: NCAT, No JVD noted. Mucosa moist. Pupils are equal and reactive to light bilaterally Cardiovascular: Normal S1 and S2. Regular rate and rhythm. Respiratory: Lungs are clear to auscultation bilaterally. No wheezing or crackles heard. Abdomen: Soft, nontender, not distended, normal bowel sounds. Skin: Warm to touch, dry, no rashes noted Musculoskeletal: No gross injuries. Able to move all 4 extremities. No pitting edema Neuro: Alert and oriented x3. No focal neuro deficits. Psych: Normal affect and mood Assessment & Plan Diagnosis / Problem List (1) CAD (coronary artery disease): Status: Acute Qualifiers: Coronary Disease-Associated Artery/Lesion type: [place] artery [place] vs. transplanted heart: [place] heart Associated angina: without angina Qualified Code(s): I25.10 - Atherosclerotic heart disease of [place] coronary artery without angina pectoris Assessment & Plan: 07/18/2022 Lipid panel: Total Cholesterol 228, Triglycerides 157, HDL 35, & LDL 164 ASCVD algorithm 24% risk of cardiovascular event in the next 10 years and high- intensity statin is recommended Pt follows with Dr. Stewart, audio video mechanic in [place], and was reportedly started on Asa, Plavix, and Atorvastatin after undergoing PCI where 2 stents were placed. Per cardiology, has cardiac clearance, but recommends to have TURP procedure after 6 months, where he can momentarily get of the Plavix and Aspirin for procedure. Plan: Continue with Atorvastatin 40mg HS, Asa 81mg QD Repeat lipid pannel next visit Medications were refilled (2) Hypertension: Status: Acute Qualifiers: Hypertension type: primary hypertension Qualified Code(s): I10 - Essential (primary) hypertension Assessment & Plan: Pt's BP is well controlled and stable Plan: Continue with Carvedilol 3.125mg BID and Lisinopril 10mg QD Encouraged to maintain a healthy diet, less than 2g of sodium/day Medications were refilled (3) Urinary retention: Status: Acute Assessment & Plan: Denies any urinary symptoms. Pending apt with urologist who accepts his insurance. Plan: -refill tamsulosin (4) Hyperlipidemia: Status: Acute Qualifiers: Hyperlipidemia type: unspecified Qualified Code(s): E78.5 - Hyperlipidemia, unspecified Assessment & Plan: 07/18/2022 Lipid panel: Total Cholesterol 228, Triglycerides 157, HDL 35, & LDL 164 ASCVD algorithm 24% risk of cardiovascular event in the next 10 years and high- intensity statin is recommended 11/13, Lipid panel significantly better, last LDL was 59. Almost at goal LDL target of under 55. Plan: Continue with Atorvastatin 40mg HS, Asa 81mg QD, and Plavix 75mg QD Will have patient get labs prior to next inperson clinic visit (5) Diabetes mellitus type 2, insulin dependent: Status: Acute Assessment & Plan: Diagnosed around approx. 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 Has not seen teller manager in the past 11/04/2021 A1C >14% 07/18/2022 A1C 8.6% 07/15/2023 was 8.9% A1c on 11/13 was 10.9% Plan: Continue Metformin 1000mg PO BIDWM Continue wtih long acting Generic Glargine 22 SC QD IF BG does drop to 70 and below, can decrease insulin administration from 22U to 20U and/or drink juice Counseled on diabetic diet & continue checking blood glucose fasting morning levels and evening levels after dinner Will have patient get CMP and A1c prior to next 3 month f/u Medications were refilled Advanced Care Planning Advance care planning discussed with:: patient Office Procedures [facility] Level of Care Nursing/Assessment Patient Status: Established Patient Nursing Assessment/Reassessment: Medication Reconciliation, Update PMH in EMR and Vital Signs Coordination of Care: Complex Care and Chronic Disease 1-5, Education Complex Pt/Fam, Consent,records obtained, informed consent, Lab and Imaging orders, Results/Orders obtained and Staff clarify orders Established Patient Charge Established Patient Point Assignment: 110 Established Patient Point Charge: Level 3 (80-115)
== END 2025-03-10 14:50 | disposition home or self-care (01) ==
LOC: HODAHC 13:15
DX: Z76.0 Encounter for issue of repeat prescription (principal); I25.10 Atherosclerotic heart disease of native coronary artery without angina pectoris; I10 Essential (primary) hypertension; E78.5 Hyperlipidemia, unspecified; E11.42 Type 2 diabetes mellitus with diabetic polyneuropathy; Z79.4 Long term (current) use of insulin; Z79.84 Long term (current) use of oral hypoglycemic drugs
CPT/HCPCS: 99213; G0463